=== PATIENT | female | born 1960 | race Two or more races ===

== ENCOUNTER 2018-03-08 10:51 | Outpatient (CLI) | payer OTHER | END 2018-03-08 11:08 | disposition home or self-care (01) | LOC: LAB 10:51 | DX: R00.2 Palpitations (principal); E03.9 Hypothyroidism, unspecified; I10 Essential (primary) hypertension; E78.5 Hyperlipidemia, unspecified ==

== ENCOUNTER → 2018-03-08 | Outpatient (CLI) | payer OTHER ==
[~2018-03-08] MED LIST: CIPRO500 MG PO; ENALAPRIL MALE2.5 MG PO; HYZAAR 50-12.51 EACH PO; HYZAAR 50/12.51 TAB PO; INTESTINEX1 CAP PO; LEVAQUIN500 MG PO; LUNESTA2 MG PO; SYNTHROID50 MCG PO; URETRON DS1 TAB PO; VASOFLEX FORTE1 CAP PO; XANAX0.25 MG PO
== END | disposition home or self-care (01) ==
LOC: PPHC 09:34
DX: Z76.0 Encounter for issue of repeat prescription (principal)

== ENCOUNTER 2018-12-28 14:47 | Emergency (ER) | payer OTHER ==
[~2018-12-28] VITALS: Ht 162.6 cm; Wt 59.0 kg
== END 2018-12-28 18:57 | disposition home or self-care (01) ==
LOC: ER 14:47
DX: B34.9 Viral infection, unspecified (principal)